=== PATIENT | male | born 1970 | race Caucasian/White ===

== ENCOUNTER 2024-04-11 11:47 | Outpatient (CLI) | payer OTHER ==
[~2024-04-11 11:47] MED LIST: ACET-1131 PO; BACL20TA PO; CELE-193 PO; OXYC-752 PO
== END 2024-04-11 23:59 | disposition home or self-care (01) ==
LOC: RAD 11:47
PROVIDERS: ATTEND Podiatrist Foot & Ankle Surgery
DX: S82.842A Displaced bimalleolar fracture of left lower leg, initial encounter for closed fracture (principal); M19.072 Primary osteoarthritis, left ankle and foot; M19.071 Primary osteoarthritis, right ankle and foot; M19.171 Post-traumatic osteoarthritis, right ankle and foot; M19.172 Post-traumatic osteoarthritis, left ankle and foot; M25.472 Effusion, left ankle; M25.471 Effusion, right ankle; M79.89 Other specified soft tissue disorders; M79.671 Pain in right foot; M79.672 Pain in left foot; Z98.890 Other specified postprocedural states; X58.XXXA Exposure to other specified factors, initial encounter; Y93.89 Activity, other specified; Y92.89 Other specified places as the place of occurrence of the external cause; Y99.8 Other external cause status
CPT/HCPCS: 73700

== ENCOUNTER 2024-06-12 05:29 | Observation (INO) | payer OTHER ==
[2024-06-02 14:24] LABS: BASOPHILS # (AUTO) 0.1 X10'3 (0-0.2); BASOPHILS % (AUTO) 1.2 % (0-1); EOSINOPHILS # (AUTO) 0.1 X10'3 (0-0.9); EOSINOPHILS % (AUTO) 1.2 % (0-6); LYMPHOCYTES # (AUTO) 1.8 X10'3 (1.1-4.8); LYMPHOCYTES % (AUTO) 18.5 % (21-51); MEAN CORPUSCULAR HEMOGLOBIN 31.5 PG (27.0-31.0); MEAN CORPUSCULAR HGB CONC 33.9 g/dL (33.0-36.5); MEAN CORPUSCULAR VOLUME 93.1 FL (78-98); MEAN PLATELET VOLUME 7.3 FL (7.4-10.4); MONOCYTES # (AUTO) 0.7 X10'3 (0-0.9); MONOCYTES % (AUTO) 7.6 % (2-12); NEUTROPHILS # (AUTO) 6.9 X10'3 (1.8-7.7); NEUTROPHILS % (AUTO) 71.5 % (42-75); PRE OP HEMATOCRIT 49.2 % (42.0-52.0); PRE OP HEMOGLOBIN 16.7 g/dL (14.0-17.9); PRE OP PLATELET COUNT 376 X10'3 (140-440); PRE OP WHITE BLOOD COUNT 9.7 10'3 (4.8-10.8); RED BLOOD COUNT 5.28 X10'6 (4.70-6.10); RED CELL DISTRIBUTION WIDTH 13.8 % (11.5-14.5)
[2024-06-02 14:30] LABS: BILIRUBIN,URINE NEGATIVE (Neg); CLARITY,URINE CLEAR (Clear); COLOR,URINE YELLOW (Yellow); GLUCOSE, URINE NEGATIVE (Neg); KETONES,URINE NEGATIVE (Neg); LEUKOCYTE ESTERASE ,URINE NEGATIVE (Neg); NITRITES, URINE NEGATIVE (Neg); OCCULT BLOOD,URINE SMALL (Neg); PROTEIN,URINE NEGATIVE (Neg); UROBILINOGEN,URINE 0.2 E.U/dL (0.2-1.0)
[2024-06-02 14:31] LABS: UA COLLECTION TYPE CLN CATCH MIDSTREAM
[2024-06-02 14:35] LABS: WBC,URINE 0-4 /HPF (0-4)
[2024-06-02 14:36] LABS: BACTERIA,URINE FEW /HPF (Neg); SQUAMOUS EPITHELIAL CELL,UR FEW /LPF (FEW)
[2024-06-02 14:37] LABS: MUCUS STRANDS FEW /LPF (Neg)
[2024-06-02 14:39] LABS: ALBUMIN 3.9 G/DL (3.4-5.0); ALKALINE PHOSPHATASE 71 IU/L (46-116); BLOOD UREA NITROGEN 23 MG/DL (7-18); BUN/CREATININE RATIO 20.5 (10.0-20.0); CALCIUM 9.6 MG/DL (8.5-10.1); CHLORIDE 105 MMOL/L (99-107); CREATININE 1.12 MG/DL (0.60-1.10); PRE OP ALT 73 U/L (30-65); PRE OP ANION GAP 9 (8-16); PRE OP AST 27 U/L (10-37); PRE OP BILIRUB, TOTAL 0.6 MG/DL (0.0-1.0); PRE OP GLUCOSE 90 MG/DL (70-104); PRE OP POTASSIUM 3.8 MMOL/L (3.4-5.1); PRE OP SODIUM 140 MMOL/L (135-145); TOTAL CARBON DIOXIDE 25.8 MMOL/L (24-32); TOTAL PROTEIN 7.8 G/DL (6.4-8.2); eGFR 69 ML/MIN
[2024-06-12] VITALS (27 sets, daily range): BP systolic 103–128; BP diastolic 60–79; PULSE 73–98; RESP 10–22; TEMP 97.3–98.7; O2SAT 92–97
[~2024-06-12] VITALS: Ht 172.7 cm; Wt 149.6 kg
[~2024-06-12 05:29] MED LIST changes: -ACET-1131 PO; +ACET-3414; +LIRA0.6P2 SQ; +LORA-835 PO; -OXYC-752 PO; +OXYC13.5 PO; +ZOLP10TA
[2024-06-12] MEDS: ringers solution, lacted 1,000 ML IV SCH ×2 (06:29→19:20)
[2024-06-12] MEDS: famotidine 20mg tablet PO ONE (06:29)
[2024-06-12] MEDS: ceFAZolin 2gm in dextrose, iso 50 ML IV ONE (06:30)
[2024-06-12] MEDS: VANCOMYCIN 1,500MG inj. 1,500 MG in normal saline 500ml IV soln 300 ML IV ONE (06:30)
[2024-06-12] MEDS ORDERED: bacitracin 15gm ointment TP ONE ×2 (06:41→07:04)
[2024-06-12] MEDS ORDERED: BUPIVAcaine 2.5mg/ml inj 50ml vial (contains preservative) ONE (06:42)
[2024-06-12] MEDS ORDERED: cloNIDine hcl/PF 100mcg/ml inj ONE (07:24)
[2024-06-12] MEDS ORDERED: propofol inj 20 ML IV ONE (07:30)
[2024-06-12] MEDS ORDERED: midazolam 1 mg/ML 2ml injection ONE (07:30)
[2024-06-12] MEDS ORDERED: fentaNYL/PF 50MCG/1 ML 2ML syringe ONE (07:30)
[2024-06-12] MEDS ORDERED: ROPIVAcaine 0.5% (5mg/ml) 30ml vial ONE (07:31)
[2024-06-12] MEDS ORDERED: proCHLORperazine 10 MG/2 ml inj IV PRN (07:40)
[2024-06-12] MEDS ORDERED: meperidine/PF 25mg/ml syringe IV PRN ×3 (07:40)
[2024-06-12] MEDS ORDERED: ondansetron/PF 4mg/2ml inj IV PRN ×2 (07:40→12:05)
[2024-06-12] MEDS ORDERED: sevoflurane 250ml liquid IH ONE (07:41)
[2024-06-12] MEDS: BUPIVAcaine 2.5mg/ml inj 50ml vial (contains preservative) IJ ONE (08:57)
[2024-06-12] MEDS ORDERED: dexamethasone sod phosphate 4mg/ml inj. ONE (10:44)
[2024-06-12] MEDS ORDERED: ondansetron/PF 4mg/2ml inj ONE (10:45)
[2024-06-12] MEDS ORDERED: glycopyrrolate 0.2mg/ml inj ONE (10:51)
[2024-06-12] MEDS ORDERED: neostigmine methylsulfate 1 MG/ML 10ml vial ONE (10:51)
[2024-06-12] MEDS: morphine 4 MG/ML inj SYRINge IV PRN (11:39)
[2024-06-12] MEDS ORDERED: potassium Cl 20 mEq SR tablet PO PRN ×2 (12:05)
[2024-06-12] MEDS ORDERED: acetaminophen 325mg tablet PO PRN ×2 (12:05→21:00)
[2024-06-12] MEDS ORDERED: magnesium hydroxide 30ml (MOM) UD suspension PO PRN (12:05)
[2024-06-12] MEDS ORDERED: potassium Cl 40MEQ/1/2NS 520ml 520 ML IV PRN (12:05)
[2024-06-12] MEDS ORDERED: mag hydrox/Alum hydrox/simeth 30ml oral suspension PO PRN (12:05)
[2024-06-12] MEDS ORDERED: magnesium sulf-water 4G/100mL 100 ML IV PRN (12:05)
[2024-06-12] MEDS ORDERED: magnesium sulf-water 2g/50mL 50 ML IV PRN (12:05)
[2024-06-12] MEDS ORDERED: magnesium Cl slow-release 64mg tablet PO PRN (12:05)
[2024-06-12] MEDS: HYDROmorphone/PF 0.2 MG/ML SYRINGE IV PRN (12:24)
[2024-06-12 15:42] LABS: POTASSIUM 4.3 MMOL/L (3.5-5.1)
[2024-06-12] MEDS ORDERED: K and/or MAG REPLACEMENT MC SCH (20:00)
[2024-06-12] MEDS: OXYCODONE MYRISTATE 13.5 MG PO SCH (20:00)
[2024-06-12] MEDS: baclofen 10mg tablet PO SCH (20:43)
[2024-06-12] MEDS: docusate sod 100mg capsule PO SCH (20:43)
[2024-06-12] MEDS: HYDROcodone/acetaminophen 10/325mg tab PO PRN (20:44)
[2024-06-12] MEDS: zolpidem 5mg tablet PO PRN (20:54)
[2024-06-13] MEDS: morphine 2 MG/ML inj. syringe IV PRN (00:35)
[2024-06-13] MEDS: diphenhydrAMINE 25mg capsule PO PRN (00:41)
[2024-06-13 01:42] VITALS: BP 100/56; PULSE 87; RESP 15; TEMP 98.9; O2SAT 97
[2024-06-13 06:30] VITALS: BP 98/54; PULSE 82; RESP 17; TEMP 97.8; O2SAT 95
[2024-06-13 08:00] VITALS: RESP 17; O2SAT 95
[2024-06-13] MEDS: LIRAGLUTIDE 0.6 MG/0.1 ML PEN.INJCTR SQ SCH (08:00)
[2024-06-13] MEDS: PSEUDOEPHEDRINE PO SCH (08:00)
[2024-06-13] MEDS: LORATADINE PO SCH (08:00)
[2024-06-13 10:00] VITALS: BP 102/62; PULSE 85; RESP 18; TEMP 98.2; O2SAT 95
[2024-06-13 11:31] VITALS: RESP 14
== END 2024-06-13 12:30 | disposition home or self-care (01) ==
LOC: PAS 05:29 → ORTHO 4S 12:11
PROVIDERS: ADMIT Podiatrist Foot & Ankle Surgery; ATTEND Podiatrist Foot & Ankle Surgery
DX: M19.072 Primary osteoarthritis, left ankle and foot (principal); M25.472 Effusion, left ankle; G89.18 Other acute postprocedural pain; Z79.899 Other long term (current) drug therapy
CPT/HCPCS: 27702; 36415; 64445; 64447; 73600; 80053; 81001; 82948; 83735; 84132; 85025; 87081; 93005; 96365; 96375; A6223; C1776; G0378; J0690; J0735; J1100; J1171; J2250; J2270; J2405; J2704; J2710; J2795; J3010; J3370; J3490; J7040; J7120; Q0163; 76000; A4615; A4618; A6253; A6449; A7000; C1713